=== PATIENT | female | born 1960 ===

== ENCOUNTER 2020-09-10 20:14 | Emergency (ER) | payer SELFPAY ==
[~2020-09-10] VITALS: Ht 175.3 cm; Wt 57.0 kg
[2020-09-10 20:26] VITALS: BP 143/80
[2020-09-10] MEDS ORDERED: METHOCARBAMOL 750 MG TABLET PO ONE (20:30)
--- NOTE | 2020-09-10 20:47 | NUR ---
PT IN TOO MUCH PAIN TO GET OUT OF W/C FOR XRAY
--- NOTE | 2020-09-10 22:18 | NUR ---
PATIENT TO ROOM FROM LOBBY
[2020-09-10] MEDS ORDERED: METHOCARBAMOL 750 MG TABLET ONE (22:22)
--- NOTE | 2020-09-10 22:27 | NUR ---
pt presents to ed with upper back pain. pt was able to stand from wheelchair and get on to gurney. pt given meds so that she may be able to go to ay, since she stated she could not get up earlier. pt resting on gurney, erp at bedside.
--- NOTE | 2020-09-10 23:50 | NUR ---
this rn went to present d/c paperwork to pt. pt was resting with eyes closed on gurney. pt states that she is still in pain and unable to stand up. this rn asked for pain medication for pt. pt was given 60 mg toradol IM
[2020-09-10] MEDS ORDERED: KETOROLAC 60 MG/2 ML ONE (23:59)
[2020-09-11] MEDS ORDERED: KETOROLAC 60 MG/2 ML IM ONE
--- NOTE | 2020-09-11 00:37 | NUR ---
Patient given discharge instructions and they have confirmed that they understand the instructions. Patient wheeled out by wheelchair. Pt was able to stand and walk to wheelchair from [facility] on her own.
== END 2020-09-11 00:41 | disposition home or self-care (01) ==
LOC: ED 23:40
DX: S29.012A Strain of muscle and tendon of back wall of thorax, initial encounter (principal); M62.830 Muscle spasm of back; F17.200 Nicotine dependence, unspecified, uncomplicated; X58.XXXA Exposure to other specified factors, initial encounter; Y93.89 Activity, other specified; Y92.89 Other specified places as the place of occurrence of the external cause; Y99.8 Other external cause status
CPT/HCPCS: 72072; 93005; 96372; 99283; J1885